=== PATIENT | male | born 1995 | race African-American/Black ===

== ENCOUNTER 2019-04-17 13:30 | Emergency (ER) | payer BC, OTHER ==
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
[2019-04-17 13:35] VITALS: BP 146/81; PULSE 82; TEMP 98.5; BMI 33.5
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
[2019-04-17] MEDS ORDERED: KETOROLAC TROMETHAMINE 60 MG/2 ML VIAL IM ONE (14:17)
[2019-04-17] MEDS ORDERED: KETOROLAC TROMETHAMINE 60 MG/2 ML VIAL ONE (14:18)
== END 2019-04-17 14:59 | disposition home or self-care (01) ==
LOC: JERFT 13:30
PROC: 3E0233Z Introduction of Anti-inflammatory into Muscle, Percutaneous Approach (ICD-10-PCS; principal; 2019-04-17)
DX: S39.012A Strain of muscle, fascia and tendon of lower back, initial encounter (principal); V43.52XA Car driver injured in collision with other type car in traffic accident, initial encounter; Y93.89 Activity, other specified; Y92.410 Unspecified street and highway as the place of occurrence of the external cause
CPT/HCPCS: 73523-TC-FY; 99281-25